=== PATIENT | male | born 1985 | race American Indian/Alaskan Native ===

== ENCOUNTER 2020-09-26 17:38 | Emergency (ER) | payer BC ==
--- NOTE | 2020-09-26 17:56 | Emergency Department Report ---
ED General Adult HPI - General Chief complaint: Fall Stated complaint: LEFT HIP PAIN/12 FT FROM A TREE Time Seen by Provider: 09/26/20 17:45 Source: patient Mode of arrival: Ambulatory Limitations: No Limitations - History of Present Illness Initial comments: 34-year-old -[place] male patient presents with complaints of left lateral hip pain after a fall injury today. Patient states he fell out of a tree and estimates the height to be about 12 feet, however states he is unsure of the height. He denies any head trauma, loss of consciousness, chest pain, abdominal pain, numbness/tingling/weakness in his limbs, loss of bladder/bowel control, or bruising. He states the pain occurs only with certain movements of the leg. He has not tried any OTC medicine for his symptoms per patient. - Related Data Previous Rx's Medication Instructions Recorded Last Taken Type Naproxen 500 mg PO BID PRN #14 tablet 09/26/20 Unknown Rx methOCARBAMOL [Robaxin TAB] 1,500 mg PO TID PRN #24 tablet 09/26/20 Unknown Rx Allergies Allergy/AdvReac Type Severity Reaction Status Date / Time No Known Allergies Allergy Unverified 09/26/20 17:49 ED Review of Systems ROS: Stated complaint: LEFT HIP PAIN/12 FT FROM A TREE Other details as noted in HPI Constitutional: denies: malaise Respiratory: denies: shortness of breath Cardiovascular: denies: chest pain Gastrointestinal: denies: abdominal pain, nausea, vomiting Genitourinary: denies: urgency, frequency, hematuria, testicular pain Musculoskeletal: denies: back pain, joint swelling Skin: denies: lesions, change in color Neurological: denies: headache, weakness, numbness, paresthesias, abnormal gait ED Past Medical Hx - Past Medical History Previous Medical History?: No - Surgical History Past Surgical History?: No - Medications Home Medications: Home Medications Medication Instructions Recorded Confirmed Last Taken Type Naproxen 500 mg PO BID PRN #14 tablet 09/26/20 Unknown Rx methOCARBAMOL [Robaxin TAB] 1,500 mg PO TID PRN #24 tablet 09/26/20 Unknown Rx ED Physical Exam - General Limitations: No Limitations General appearance: alert, in no apparent distress - Head Head exam: Present: atraumatic, normocephalic - Eye Eye exam: Present: normal appearance. Absent: scleral icterus - Neck Neck exam: Present: normal inspection, full ROM - Respiratory Respiratory exam: Absent: respiratory distress - Cardiovascular Cardiovascular Exam: Present: regular rate - GI/Abdominal GI/Abdominal exam: Present: soft. Absent: distended, tenderness - Extremities Exam Extremities exam: Present: other (Mild tenderness to palpation noted to left lateral hip and gluteal muscle without obvious deformity, bruising, or swelling; patient has full range of motion of the left hip and knee) - Back Exam Back exam: Present: full ROM. Absent: tenderness - Neurological Exam Neurological exam: Present: alert, oriented X3. Absent: normal gait (Antalgic), motor sensory deficit - Expanded Neurological Exam Expanded Sensory exam: Lower Extremity Light Touch: Normal Motor strength exam: RLE: 5, LLE: 5 - Psychiatric Psychiatric exam: Present: normal affect, normal mood - Skin Skin exam: Present: warm, dry, intact, normal color. Absent: rash, diaphoretic, erythema, ecchymosis ED Course Vital Signs 09/26/20 09/26/20 09/26/20 17:49 18:23 19:40 Temperature 98.7 F 97.8 F Pulse Rate 92 H 81 97 H Respiratory 20 16 18 Rate Blood Pressure 125/60 Blood Pressure 119/60 139/65 [Left] O2 Sat by Pulse 99 97 97 Oximetry ED Medical Decision Making - Radiology Data Radiology results: report reviewed - Medical Decision Making 34-year-old -[place] male patient presents with complaints of left lateral hip pain after a fall injury today. Patient states he fell out of a tree and estimates the height to be about 12 feet, however states he is unsure of the height. He denies any head trauma, loss of consciousness, chest pain, abdominal pain, numbness/tingling/weakness in his limbs, loss of bladder/bowel control, or bruising. He states the pain occurs only with certain movements of the leg. He has not tried any OTC medicine for his symptoms per patient. X-rays are negative for any acute bony abnormality. Patient states his pain has significantly improved with Toradol and Robaxin given. Recommend rice method of treatment along with NSAIDs. Also recommend patient follows up with his primary care doctor in 3 days. Patient is well-appearing, his vitals are normal, he is stable for discharge home. Strict return precautions were d iscussed in detail with patient who verbalized understanding. Critical care attestation.: If time is entered above; I have spent that time in minutes in the direct care of this critically ill patient, excluding procedure time. ED Disposition Clinical Impression: Fall from tree, initial encounter Strain of left hip Qualifiers: Encounter type: initial encounter Qualified Code(s): S76.012A - Strain of muscle, fascia and tendon of left hip, initial encounter Disposition: TO HOME OR SELFCARE Is pt being admited?: No Condition: Stable Instructions: Muscle Strain, Gluteus Medius Syndrome Prescriptions: Naproxen 500 mg PO BID PRN #14 tablet PRN Reason: pain methOCARBAMOL [Robaxin TAB] 1,500 mg PO TID PRN #24 tablet PRN Reason: muscle spasm/tightness Referrals: [facility] [Provider Group] - 3-5 Days Forms: Work/School Release Form(ED)
[2020-09-26] MEDS ORDERED: KETOROLAC 30 MG/1 ML INJ IM ONE (18:17)
--- NOTE | 2020-09-26 18:49 | XRay Report ---
LEFT HIP AND PELVIS 2 VIEWS LEFT FEMUR 5 VIEWS INDICATION: pain after 12 foot fall. COMPARISON: No relevant prior imaging study available. FINDINGS: Left hip/pelvis: No acute fracture or dislocation. No degenerative changes. No foreign bodies. Left femur: No acute fracture is seen. No significant left knee effusion. No foreign bodies. IMPRESSION: 1. No acute findings. Signer Name: José Pacheco MD Signed: 09/26/2020 6:44 PM Workstation Name: [id number]
[2020-09-26 19:40] VITALS: BP 139/65
== END 2020-09-26 19:40 | disposition home or self-care (01) ==
LOC: ED 17:38
DX: S76.012A Strain of muscle, fascia and tendon of left hip, initial encounter (principal); Z79.899 Other long term (current) drug therapy; W14.XXXA Fall from tree, initial encounter; Y93.89 Activity, other specified; Y92.89 Other specified places as the place of occurrence of the external cause; Y99.8 Other external cause status
CPT/HCPCS: 73502; 73552; 96372; 99283; J1885

== ENCOUNTER 2021-07-16 22:27 | Emergency (ER) | payer BC ==
[2021-07-17 03:47] VITALS: BP 132/81
--- NOTE | 2021-07-17 06:21 | Emergency Department Report ---
Minor Respiratory - HPI Chief Complaint: Upper Respiratory Infection Stated Complaint: COUGH AMINTA Time Seen by Provider: 07/17/21 03:57 Duration: 5 Days Pain Location: Chest Severity: moderate Minor Respiratory: Yes Able to Tolerate Fluids, Yes Cough, Yes Fever, No Rhinorrhea, No Sore Throat, No Ear Pain, No Sick Contacts, No Hemoptysis, No Chest Pain, No Shortness of Breath Other History: 35-year-old male presents emerge department complaining of cough congestion coryza nasal discharge fever sensation off and on for the past few days. No hemoptysis no hematemesis no hematochezia no chest pain palpitations has been producing yellowish-brown mucus ED Review of Systems ROS: Stated complaint: COUGH AMINTA Other details as noted in HPI Comment: All other systems reviewed and negative ED Past Medical Hx - Past Medical History Previous Medical History?: No - Surgical History Past Surgical History?: No - Social History Smoking Status: Current Every Day Smoker Substance Use Type: Alcohol - Medications Home Medications: Home Medications Medication Instructions Recorded Confirmed Last Taken Type Naproxen 500 mg PO BID PRN #14 tablet 09/26/20 Unknown Rx methOCARBAMOL [Robaxin TAB] 1,500 mg PO TID PRN #24 tablet 09/26/20 Unknown Rx Albuterol Mdi (or & Nicu Only) 2 puff IH QID PRN #1 inhalation 07/17/21 Unknown Rx [ProAir HFA Inhaler] Azithromycin [Zithromax] 500 mg PO QDAY #3 tablet 07/17/21 Unknown Rx Benzonatate [Tessalon Perles] 100 mg PO Q8HR #20 capsule 07/17/21 Unknown Rx Minor Respiratory Exam - Exam General: Vital signs noted. No distress. Alert and acting appropriately. HEENT: Yes Moist Mucous Membranes, No Pharyngeal Erythema, No Pharyngeal Exudates, No Rhinorrhea, No Conjuctival Injection, No Frontal Tenderness, No Maxillary Tenderness Ear: Neither TM Bulge, Neither TM Erythema, Neither EAC Pain, Neither EAC Discharge Neck: Yes Supple, No Adenopathy Lungs: Yes Good Air Exchange, Yes Ronchi, Yes Cough, No Wheezes, No Stridor, No Labored Respirations, No Retractions, No Use of Accessory Muscles, No Other Abnormal Lung Sounds Heart: Yes Regular, No Murmur Abdomen: Yes Normal Bowel Sounds, No Tenderness, No Peritoneal Signs Skin: No Rash, No Edema Neurologic: Alert and oriented, no deficits. Musculoskeletal: Unremarkable. ED Course Vital Signs 07/16/21 07/17/21 22:30 03:46 Temperature 99.1 F Pulse Rate 101 H 85 Respiratory 18 20 Rate Blood Pressure 145/84 Blood Pressure 132/81 [Right] O2 Sat by Pulse 97 98 Oximetry ED Medical Decision Making - Medical Decision Making This patient presents with acute cough, most consistent with nonemergent cough and congestion. Differential diagnosis includes bronchitis, asthma, Covid, postnasal drip,. Presentation not consistent with acute bacterial pneumonia, influenza, asthma, transient airway hyperresponsiveness. Presentation not consistent with chronic causes of cough (including GERD, asthma, postnasal discharge, medication side effect, CHF, lung cancer or mass). Plan: supportive care, reassess Critical care attestation.: If time is entered above; I have spent that time in minutes in the direct care of this critically ill patient, excluding procedure time. ED Disposition Clinical Impression: Bronchitis, Cough Disposition: 01 HOME / SELF CARE / HOMELESS Is pt being admited?: No Does the pt Need Aspirin: No Condition: Stable Instructions: Cool Mist Vaporizer, Cough, Adult, [id number], Upper Respiratory Infection, Adult, [id number], Cough, Adult, How to Use a Dry Powder Inhaler, Chronic Bronchitis (ED) Prescriptions: Albuterol Mdi (or & Nicu Only) [ProAir HFA Inhaler] 2 puff IH QID PRN #1 inhalation PRN Reason: Shortness Of Breath Benzonatate [Tessalon Perles] 100 mg PO Q8HR #20 capsule Azithromycin [Zithromax] 500 mg PO QDAY #3 tablet Referrals: [facility] [Provider Group] - 3-5 Days PRIMARY CARE, [Primary Care Provider] - 3-5 Days Forms: Work/School Release Form(ED)
== END 2021-07-17 04:30 | disposition home or self-care (01) ==
LOC: ED 22:27
DX: J40 Bronchitis, not specified as acute or chronic (principal); R05.9 Cough, unspecified; F17.200 Nicotine dependence, unspecified, uncomplicated; F10.20 Alcohol dependence, uncomplicated
CPT/HCPCS: 99282

== ENCOUNTER 2022-01-04 21:44 | Emergency (ER) | payer SELFPAY ==
[2022-01-04 23:30] VITALS: BP 166/99
--- NOTE | 2022-01-05 | XRay Report ---
LEFT HAND 3 VIEW(S) INDICATION / CLINICAL INFORMATION: INJURY COMPARISON: None available. FINDINGS: BONES / JOINT(S): No acute fracture or subluxation. No significant arthritis. SOFT TISSUES: No significant abnormality. ADDITIONAL FINDINGS: None. IMPRESSION: 1. No acute findings. Signer Name: Castro Torres MD Signed: 01/04/2022 11:56 PM Workstation Name: [id number]
--- NOTE | 2022-01-05 | XRay Report ---
LEFT WRIST 3 VIEW(S) INDICATION / CLINICAL INFORMATION: INJURY COMPARISON: None available. FINDINGS: BONES / JOINT(S): No acute fracture or subluxation. No significant arthritis. SOFT TISSUES: No significant abnormality. ADDITIONAL FINDINGS: None. IMPRESSION: 1. No acute findings. Signer Name: Castro Torres MD Signed: 01/04/2022 11:55 PM Workstation Name: [id number]
== END 2022-01-05 05:19 | disposition left against medical advice (07) ==
LOC: ED 21:44
DX: S69.90XA Unspecified injury of unspecified wrist, hand and finger(s), initial encounter (principal); Z53.21 Procedure and treatment not carried out due to patient leaving prior to being seen by health care provider; W13.2XXA Fall from, out of or through roof, initial encounter; Y93.89 Activity, other specified; Y92.89 Other specified places as the place of occurrence of the external cause; Y99.8 Other external cause status